=== PATIENT | male | born 1965 | race Caucasian/White ===

== ENCOUNTER 2022-11-12 09:07 | Day surgery (SDC) | payer BC ==
[2022-11-10 11:50] LABS: BASOPHILS % (AUTO) 0.9 % (0-1); EOSINOPHILS # (AUTO) 0.1 X10'3 (0-0.9); EOSINOPHILS % (AUTO) 1.2 % (0-6); LYMPHOCYTES # (AUTO) 1.9 X10'3 (1.1-4.8); LYMPHOCYTES % (AUTO) 39.9 % (21-51); MEAN CORPUSCULAR HEMOGLOBIN 30.9 PG (27.0-31.0); MEAN CORPUSCULAR HGB CONC 33.9 g/dL (33.0-36.5); MEAN CORPUSCULAR VOLUME 91.2 FL (78-98); MEAN PLATELET VOLUME 7.1 FL (7.4-10.4); MONOCYTES # (AUTO) 0.4 X10'3 (0-0.9); NEUTROPHILS # (AUTO) 2.3 X10'3 (1.8-7.7); PRE OP HEMATOCRIT 47.8 % (42.0-52.0); PRE OP HEMOGLOBIN 16.2 g/dL (14.0-17.9); PRE OP PLATELET COUNT 204 X10'3 (140-440); PRE OP WHITE BLOOD COUNT 4.8 10'3 (4.8-10.8); RED BLOOD COUNT 5.24 X10'6 (4.70-6.10); RED CELL DISTRIBUTION WIDTH 13.9 % (11.5-14.5)
[2022-11-10 11:52] LABS: BILIRUBIN,URINE NEGATIVE (Neg); CLARITY,URINE CLEAR (Clear); COLOR,URINE YELLOW (Yellow); GLUCOSE, URINE NEGATIVE (Neg); KETONES,URINE NEGATIVE (Neg); LEUKOCYTE ESTERASE ,URINE NEGATIVE (Neg); NITRITES, URINE NEGATIVE (Neg); OCCULT BLOOD,URINE TRACE-INTACT (Neg); PH,URINE 5.5 (4.8-8.0); PROTEIN,URINE NEGATIVE (Neg); UROBILINOGEN,URINE 0.2 E.U/dL (0.2-1.0)
[2022-11-10 11:55] LABS: UA COLLECTION TYPE CLN CATCH MIDSTREAM
[2022-11-10 11:58] LABS: BACTERIA,URINE FEW /HPF (Neg); SQUAMOUS EPITHELIAL CELL,UR FEW /LPF (FEW); WBC,URINE 0-4 /HPF (0-4)
[2022-11-10 12:06] LABS: ALBUMIN 3.6 G/DL (3.4-5.0); ALKALINE PHOSPHATASE 69 IU/L (46-116); BLOOD UREA NITROGEN 21 MG/DL (7-18); BUN/CREATININE RATIO 18.1 (10.0-20.0); CALCIUM 9.4 MG/DL (8.5-10.1); CHLORIDE 105 MMOL/L (99-107); CREATININE 1.16 MG/DL (0.60-1.10); PRE OP ALT 34 U/L (30-65); PRE OP ANION GAP 7 (8-16); PRE OP AST 20 U/L (10-37); PRE OP BILIRUB, TOTAL 0.6 MG/DL (0.0-1.0); PRE OP GLUCOSE 104 MG/DL (70-104); PRE OP POTASSIUM 4.2 MMOL/L (3.4-5.1); PRE OP SODIUM 141 MMOL/L (135-145); TOTAL CARBON DIOXIDE 29.4 MMOL/L (24-32); TOTAL PROTEIN 7.3 G/DL (6.4-8.2); eGFR 65 ML/MIN
[~2022-11-12] VITALS: Ht 185.4 cm; Wt 114.0 kg
[~2022-11-12 09:07] MED LIST: DILT-35 PO; LOSA25TA41 PO; cefazolin 2gm/D5W 100mL 100 ML IV ONE; famotidine 20mg tablet PO ONE; ringers solution, lacted 1,000 ML IV SCH
[2022-11-12 09:48] VITALS: RESP 15; O2SAT 98
[2022-11-12 10:12] VITALS: BP 136/95; PULSE 82; RESP 16; TEMP 97.7; O2SAT 98
[2022-11-12] MEDS ORDERED: ondansetron/PF 4mg/2ml inj IV PRN (11:45)
[2022-11-12] MEDS ORDERED: ringers solution, lacted 1,000 ML IV SCH (11:45)
[2022-11-12] MEDS ORDERED: meperidine/PF 25mg/ml syringe IV PRN ×3 (11:45)
[2022-11-12] MEDS ORDERED: morphine 4 MG/ML inj SYRINge IV PRN (11:45)
[2022-11-12] MEDS ORDERED: proCHLORperazine 10 MG/2 ml inj IV PRN (11:45)
[2022-11-12] MEDS ORDERED: morphine 2 MG/ML inj. syringe IV PRN (11:45)
[2022-11-12] MEDS ORDERED: bacitracin 15gm ointment TP ONE (12:34)
[2022-11-12] MEDS ORDERED: fentaNYL/PF 50MCG/1 ML 2ML syringe ONE (12:55)
[2022-11-12] MEDS ORDERED: sevoflurane 250ml liquid IH ONE (12:55)
[2022-11-12] MEDS ORDERED: dexamethasone sod phosphate 10mg/ml inj ONE (12:55)
[2022-11-12] MEDS ORDERED: MIDAZolam 1 MG/ML 5ML VIAL ONE (12:55)
[2022-11-12] MEDS ORDERED: propofol inj 20 ML IV ONE ×2 (13:23)
[2022-11-12] MEDS ORDERED: ROPIVAcaine 0.5% (5mg/ml) 30ml vial ONE (13:23)
[2022-11-12] MEDS ORDERED: rocuronium 10mg/ml inj IV ONE (13:38)
[2022-11-12] MEDS ORDERED: LIDOcaine 1%/PF 5ML 10 MG/ML VIAL ONE (13:47)
[2022-11-12] MEDS ORDERED: ondansetron/PF 4mg/2ml inj ONE (15:05)
[2022-11-12 15:13] VITALS: BP 130/107; PULSE 57; RESP 16; O2SAT 98
--- NOTE | 2022-11-12 15:13 | NUR ---
Received from OR via [facility], accompanied by Anesthesiologist and report given by Anesthesiologist. PATIENT WAKING UP, NO S/S OF PAIN, V/S WNL, SCD ON, 20G TO LEFT FA, RIGHT FOOT SPLINT AND ERROL WRAP DRESSING CDI. PATIENT GIVEN FOAM ELEVATER FOR FOOT.
[2022-11-12 15:23] VITALS: BP 112/73; PULSE 82; RESP 14; O2SAT 95
[2022-11-12 15:33] VITALS: BP 106/77; PULSE 77; RESP 10; O2SAT 93
[2022-11-12 15:43] VITALS: BP 117/87; PULSE 79; RESP 18; O2SAT 95
--- NOTE | 2022-11-12 16:13 | NUR ---
I HAVE REVIEWED D/C INSTRUCTIONS WITH PATIENT and they have verbalized understanding patient d/c home with all belongings and family gave transport home.CRUTCHES SENT WITH PATIENT.
== END 2022-11-12 16:13 | disposition home or self-care (01) ==
LOC: PRE-OP 09:07
PROVIDERS: ATTEND Podiatrist Foot & Ankle Surgery
DX: S86.011A Strain of right Achilles tendon, initial encounter (principal); I10 Essential (primary) hypertension; G43.909 Migraine, unspecified, not intractable, without status migrainosus; G89.18 Other acute postprocedural pain; Z79.899 Other long term (current) drug therapy; Z98.1 Arthrodesis status; Z72.89 Other problems related to lifestyle; Z98.890 Other specified postprocedural states; Z86.14 Personal history of Methicillin resistant Staphylococcus aureus infection; X58.XXXA Exposure to other specified factors, initial encounter; Y93.89 Activity, other specified; Y92.89 Other specified places as the place of occurrence of the external cause; Y99.8 Other external cause status
CPT/HCPCS: 27650; 36415; 64445; 80053; 81001; 82948; 85025; 93005; A6222; C1713; J0690; J1100; J2250; J2405; J2704; J2795; J3010; J3490; J7030; J7120; Z7506; Z7508; Z7512; A4215; A4618; A6253; A6449; A7000

== ENCOUNTER 2023-01-22 14:44 | Emergency (ER) | payer BC, OTHER ==
[~2023-01-22] VITALS: Ht 193 cm; Wt 103.4 kg
[~2023-01-22 14:44] MED LIST changes: -cefazolin 2gm/D5W 100mL 100 ML IV ONE; -famotidine 20mg tablet PO ONE; +piperacillin/tazo 3.375gm/50ml 50 ML IV ONE; -ringers solution, lacted 1,000 ML IV SCH
[2023-01-22 14:58] VITALS: BP 163/106; PULSE 102; RESP 16; TEMP 97.9; O2SAT 97
[2023-01-22 15:53] LABS: BASOPHILS % (AUTO) 0.5 % (0-1); EOSINOPHILS % (AUTO) 0.6 % (0-6); HEMATOCRIT 45.3 % (42.0-52.0); HEMOGLOBIN 15.6 g/dl (14.0-17.9); LYMPHOCYTES # (AUTO) 1.8 X10'3 (1.1-4.8); LYMPHOCYTES % (AUTO) 26.5 % (21-51); MEAN CORPUSCULAR HEMOGLOBIN 31.8 PG (27.0-31.0); MEAN CORPUSCULAR HGB CONC 34.5 g/dL (33.0-36.5); MEAN CORPUSCULAR VOLUME 92.3 FL (78-98); MEAN PLATELET VOLUME 7.3 FL (7.4-10.4); MONOCYTES # (AUTO) 0.6 X10'3 (0-0.9); MONOCYTES % (AUTO) 8.3 % (2-12); NEUTROPHILS # (AUTO) 4.4 X10'3 (1.8-7.7); NEUTROPHILS % (AUTO) 64.1 % (42-75); PLATELET COUNT 196 X10'3 (140-440); RED BLOOD COUNT 4.91 X10'6 (4.70-6.10); RED CELL DISTRIBUTION WIDTH 14.3 % (11.5-14.5); WHITE BLOOD COUNT 6.9 X10'3 (4.5-11.0)
[2023-01-22 16:19] LABS: ALANINE AMINOTRANSFERASE 43 U/L (12-78); ALBUMIN 3.7 G/DL (3.4-5.0); ALBUMIN/GLOBULIN RATIO 0.8 (1.1-1.5); ALKALINE PHOSPHATASE 80 IU/L (46-116); ANION GAP 7 (8-16); ASPARTATE AMINO TRANSFERASE 19 U/L (10-37); BILIRUBIN,TOTAL 0.7 MG/DL (0.1-1.0); BLOOD UREA NITROGEN 18 MG/DL (7-18); BUN/CREATININE RATIO 18.6 (10.0-20.0); CALCIUM 9.4 MG/DL (8.5-10.1); CHLORIDE 103 MMOL/L (99-107); CREATININE 0.97 MG/DL (0.60-1.10); GLUCOSE 123 MG/DL (70-104); SODIUM 137 MMOL/L (135-145); TOTAL CARBON DIOXIDE 27.1 MMOL/L (24-32); TOTAL PROTEIN 8.1 G/DL (6.4-8.2); eCRCL 106 ML/MIN; eGFR 80 ML/MIN
[2023-01-22] MEDS ORDERED: VANCOmycin 2,000MG in NS 500ml IV soln IV ONE (17:50)
[2023-01-22] MEDS ORDERED: VANCOMYCIN 1,500MG inj. 1,500 MG in normal saline 500ml IV soln 300 ML IV ONE ×2 (18:20→20:00)
[2023-01-22] MEDS ORDERED: CLIN-97 PO (20:11)
[2023-01-22] MEDS ORDERED: SULF1TAB49 PO (20:11)
[2023-01-22] MEDS ORDERED: HYDR-3965 PO (20:32)
== END 2023-01-22 20:52 | disposition home or self-care (01) ==
LOC: ER 14:44
DX: M65.171 Other infective (teno)synovitis, right ankle and foot (principal); I10 Essential (primary) hypertension; Z79.899 Other long term (current) drug therapy
CPT/HCPCS: 36415; 73600; 80053; 83605; 84145; 85025; 87040; 96365; 96366; 96368; 99284; J2543; J3370; J7040